=== PATIENT | male | born 1985 | race Caucasian/White ===

== ENCOUNTER 2017-04-06 09:53 | Outpatient (CLI) | payer OTHER | END 2017-04-06 10:21 | disposition home or self-care (01) | LOC: LAB 09:53 | DX: E11.65 Type 2 diabetes mellitus with hyperglycemia (principal); E10.65 Type 1 diabetes mellitus with hyperglycemia; E03.8 Other specified hypothyroidism; E05.90 Thyrotoxicosis, unspecified without thyrotoxic crisis or storm; E78.2 Mixed hyperlipidemia; E55.9 Vitamin D deficiency, unspecified; D64.89 Other specified anemias; N39.0 Urinary tract infection, site not specified; N40.0 Benign prostatic hyperplasia without lower urinary tract symptoms; E21.3 Hyperparathyroidism, unspecified; E24.9 Cushing's syndrome, unspecified; E29.1 Testicular hypofunction; E22.1 Hyperprolactinemia ==

== ENCOUNTER 2017-04-06 11:11 | Outpatient (CLI) | payer OTHER | END 2017-04-06 11:12 | disposition home or self-care (01) | LOC: SONOGRAMA 11:11 | DX: E04.1 Nontoxic single thyroid nodule (principal) ==

== ENCOUNTER 2017-05-24 09:57 | Outpatient (CLI) | payer OTHER | END 2017-05-24 15:18 | disposition home or self-care (01) | LOC: TOM 09:57 | DX: E04.1 Nontoxic single thyroid nodule (principal) ==